=== PATIENT | male | born 1960 | race Asian ===

== ENCOUNTER 2020-04-08 14:55 | Emergency (ER) | payer OTHER ==
[~2020-04-08] VITALS: Ht 170.2 cm; Wt 89.8 kg
[~2020-04-08 14:55] MED LIST: 8 HOUR PAIN RE650 M1 PO; ADULT LOW DOSE81 MG PO; AMLODIPINE BESY10 MG PO; EFFIENT10 MG PO; FISHOIL PO; GLUCOPHAGE500 MG PO; HYDROCODON-ACE1 EAC7 PO; LANTUS SOL100 UNIT/1 SUBQ; LIPITOR 20 MG T20 M1 PO; LOSARTAN POTAS100 MG PO; METFORMIN HCL1000 MG PO; METOPROLOL SUCC50 MG PO; NORCO 5-325 TA1 EACH PO; PRADAXA150 MG PO; PRINIVIL10 MG PO; TOPROL XL25 MG PO; ULTRACET TABLET1 TAB PO; ZOCOR40 MG PO; ZOFRAN4 MG PO
[2020-04-08 15:54] LABS: ABSOLUTE BASOPHILS 0.1 thou/uL (0.0-0.2); ABSOLUTE LYMPHOCYTES 1.7 thou/uL (0.8-5.3); ABSOLUTE MONOCYTES 0.3 thou/uL (0.0-1.2); ABSOLUTE NEUTROPHILS 3.9 thou/uL (1.6-8.1); EOSINOPHILS 0.8 %; HEMATOCRIT 43.8 % (42.0-52.0); HEMOGLOBIN 14.6 gm/dL (14.0-18.0); LYMPHOCYTES 29.1 %; MCHC 33.3 g/dL (28.0-37.0); MCV 84.2 fL (80.0-100.0); MONOCYTES 4.9 %; MPV 8.4 fl. (7.2-11.1); NUCLEATED RBCS 0 /100WBC; PLATELET COUNT* 256 thou/uL (150-400); POLYS 64.2 %; RBC 5.21 mil/uL (4.50-6.00); RDW-CV 13.1 % (10.5-14.5)
[2020-04-08 16:03] LABS: CALCIUM 8.9 mg/dL (8.5-10.1); CREATININE 0.9 mg/dL (0.6-1.3)
[2020-04-08] MEDS ORDERED: AUGMENTIN 875-1 EACH PO (16:41)
[2020-04-08] MEDS ORDERED: GENTAK5 ML INTRAOCULR (16:41)
[2020-04-08 16:51] VITALS: BP 173/105
== END 2020-04-08 16:51 | disposition home or self-care (01) ==
LOC: M.ERS 14:55
PROVIDERS: Emergency Medicine Emergency Medical Services
DX: H10.9 Unspecified conjunctivitis (principal); J32.9 Chronic sinusitis, unspecified; I10 Essential (primary) hypertension; E78.5 Hyperlipidemia, unspecified; E11.9 Type 2 diabetes mellitus without complications; Z79.899 Other long term (current) drug therapy; Z79.82 Long term (current) use of aspirin